=== PATIENT | male | born 2005 | race Caucasian/White ===

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

== ENCOUNTER 2023-07-20 15:07 | Emergency (ER) | payer OTHER ==
[2023-07-20 15:17] VITALS: BP 134/80; PULSE 100; RESP 18; TEMP 98.2; BMI 27.5
[2023-07-20] MEDS ORDERED: IBUPROFEN 400 MG TABLET (FP) PO ONE ×2 (16:13→16:15)
== END 2023-07-20 16:19 | disposition home or self-care (01) ==
LOC: JERFT 15:07
DX: M25.512 Pain in left shoulder (principal); M54.6 Pain in thoracic spine; V49.40XA Driver injured in collision with unspecified motor vehicles in traffic accident, initial encounter; Y93.I9 Activity, other involving external motion
CPT/HCPCS: 99283-25